=== PATIENT | female | born 1985 | race Two or more races ===

== ENCOUNTER 2024-12-19 12:24 | Emergency (ER) | payer MEDICAID, SELFPAY ==
[2024-12-19 12:25] VITALS: BMI 35.6
[2024-12-19 12:51] VITALS: BP 138/91; PULSE 83; RESP 18; TEMP 37; O2SAT 97
--- NOTE | 2024-12-19 12:57 | XR_ITS ---
Examination: Complete OB ultrasound, less than 14 weeks, transabdominal Date and time of exam: December 19, 2024 1313 hours INDICATIONS: Onset vaginal bleeding today Technique: Obstetrical ultrasound images less than 14 weeks performed via transabdominal imaging Findings: Uterus 12.1 cm gestational sac 1.2 cm corresponds to 6 weeks 0 day gestational age No pole, no cardiac activity Right ovary 3.4 cm arterial flow Left ovary 3.7 cm arterial flow IMPRESSION: Empty intrauterine gestational sac corresponding to 6 week 0 day gestational age Recommend transvaginal pelvic sonography follow-up
--- NOTE | 2024-12-19 12:59 | EDNOTE_ITS ---
<Statement entered by Summer Carlin MD - 01/02/25 06:25> As co-signing physician, I was present and available for consult prn. I concur with the plan and care as documented by the midlevel provider. ED OB Contraction Preg RMI/HPI General Chief complaint: Vaginal Bleeding Stated complaint: VAGINAL BLEEDING; PREG 7 WKS Time Seen by Provider: 12/19/24 12:45 Source: patient Arrival date/time: 12/19/24 12:24 39-year-old female with no known medical history presents to the emergency room with a chief complaint of vaginal bleeding and pelvic cramping. Patient is a G4, P3. She is currently 7 weeks . Mode of arrival: ambulatory Limitations: no limitations Related Data Home Medications ?Medication ?Instructions ?Recorded ?Confirmed metformin 500 mg tablet 500 mg PO DAILY #0 tabs 06/2001/03/19 (Glucophage) Previous Rx's ?Medication ?Instructions ?Recorded cyclobenzaprine 10 mg tablet 10 mg PO TID PRN muscle s pasm #30 01/03/19 tabs ibuprofen 800 mg tablet 800 mg PO TID PRN pain #30 t abs 01/03/19 Allergies Allergy/AdvReac Type Severity Reaction Status Date / Time No Known Allergies Allergy Verified 12/19/24 12:27 Review of Systems Review of Systems Systems Reviewed: All systems reviewed, normal except as documented Constitutional Constitutional: Reports system reviewed and no additional complaints, except as documented, Denies fatigue, Denies fever(s), Denies headache(s) and Denies weakness Eyes Eyes: Reports system reviewed and no additional complaints, except as documented, Denies blurry vision and Denies change in vision ENT Ears, Nose, Mouth, and Throat: Reports system reviewed and no additional comp laints, except as documented, Denies otalgia, Denies headache(s), Denies nasal congestion, Denies throat swelling and Denies vertigo Cardiovascular Cardiovascular: Reports system reviewed and no additional complaints, except as documented, Denies chest pain, Denies dyspnea and Denies dyspnea on exertion Respiratory Respiratory: Reports system reviewed and no additional complaints, except as documented, Denies chest congestion, Denies cough, Denies dyspnea, Denies dyspnea on exertion and Denies wheezing Gastrointestinal Gastrointestinal: Reports system reviewed and no additional complaints, except as documented, Denies abdominal pain, Denies cramping, Denies nausea and Denies vomiting Genitourinary Genitourinary: Reports system reviewed and no additional complaints, except as documented, Reports abnormal vaginal bleeding and Reports pelvic pain Musculoskeletal Musculoskeletal: Reports system reviewed and no additional complaints, except as documented and Denies back pain Integumentary/Breasts Skin/Breast: Reports system reviewed and no additional complaints, except as documented and Denies wounds Neurologic Neurologic: Reports system reviewed and no additional complaints, except as documented, Denies confusion, Denies headache(s), Denies lack of coordination, Denies vertigo and Denies weakness Psychiatric Psychiatric: Reports system reviewed and no additional complaints, except as documented, Denies anxiety, Denies confusion, Denies depression, Denies paranoia, Denies suicidal ideation and Denies tactile hallucinations Endocrine Endocrine: Reports system reviewed and no additional complaints, except as documented and Denies fatigue Hematologic/Lymphatic Hematologic/Lymphatic: Reports system reviewed and no additional complaints, except as documented and Denies lymphadenopathy Allergic/Immunologic Allergic/Immunologic: Reports system reviewed and no additional complaints, except as documented, Denies throat swelling, Denies urticaria and Denies wheezing ED Exam General Limitations: Present no limitations General appearance: Present alert and in no apparent distress Head Head exam: Present atraumatic Eye Eye exam: Present normal appearance, PERRL and EOMI ENT ENT exam: Present normal exam, normal oropharynx and mucous membranes moist Neck Neck exam: Present normal inspection, full ROM and trachea midline Chest Chest inspection: Present normal inspection and symmetric chest wall rise Respiratory Respiratory exam: Present normal lung sounds bilaterally Cardiovascular Cardiovascular exam: Present regular rate, normal rhythm and normal heart sounds Abdominal Exam Abdominal exam: Present soft and normal bowel sounds; Absent tenderness Extremities Exam Extremities exam: Present normal inspection and full ROM Back Exam Back exam: Present normal inspection and full ROM Neurological Exam Neurological exam: Present alert, oriented X3 and CN II-XII intact Psychiatric Psychiatric exam: Present normal affect and normal mood Skin Skin exam: Present warm, dry, intact and normal color Course Quality Measures none Orders Category Date Time Status US OB <= 14 weeks fetus Stat Exams 12/19/24 12:57 Completed ABO/RH Type Stat Lab 12/19/24 13:55 Completed Beta HCG,Quantitative Stat Lab 12/19/24 13:55 Completed CBC Stat Lab 12/19/24 13:55 Completed CMP [Comprehensive Metabolic Panel] Stat Lab 12/19/24 13:55 Completed UA [Urinalysis] Stat Lab 12/19/24 13:54 Completed Vital Signs Vital signs: Vital Signs Temperature 98.6 F 12/19/24 12:51 Pulse Rate 83 12/19/24 12:51 Respiratory Rate 18 12/19/24 12:51 Blood Pressure 138/91 H 12/19/24 12:51 Pulse Oximetry (%) 97 12/19/24 12:51 Oxygen Delivery Method Room Air 12/19/24 12:51 Vaginal Bleeding MDM Narrative MDM Narrative: 39-year-old female with no known medical history presents to the emergency room with a chief complaint of vaginal bleeding and pelvic cramping. Patient is a G4, P3. She is currently 7 weeks . Patient is hemodynamically stable and in no apparent distress Physical examination shows a soft nontender abdomen. Ultrasound OB was completed and shows an empty intrauterine gestational sac corresponding to 6 weeks and 0 days and gestational age. There is no pole there is no cardiac activity our radiologist recommends a transvaginal pelvic sonography follow-up. CBC CMP were within normal limits. hCG levels were at 5251. The patient was educated to return to the emergency room in 3 days for repeat blood work and ultrasound Patient was discharged and educated to follow-up with primary care provider in the next 24 to 48 hours and return to the emergency room for any evidence of worsening signs or symptoms Patient data External records reviewed:: [facility] previous records Clinical information provided by:: patient Social determinants that could affect healthcare access:: none Patient has the following chronic illnesses:: No chronic illness How is presenting disease/condition affected by chronic disease/condition?: no chronic disease Evaluation data The following diagnostics were reviewed and interpreted by me:: lab results and radiology exam(s) Lab and/or radiology exams considered but not ordered:: Labs and radiology exams considered and ordered Interpretation Summary: Ultrasound OB-Findings: Uterus 12.1 cm gestational sac 1.2 cm corresponds to 6 weeks 0 day gestational age No pole, no cardiac activity Right ovary 3.4 cm arterial flow Left ovary 3.7 cm arterial flow IMPRESSION: Empty intrauterine gestational sac corresponding to 6 week 0 day gestational age Recommend transvaginal pelvic sonography follow-up Medications / Prescriptions Medications or Prescriptions considered but not ordered:: No medication given Medication administrations:: No medication given Consultations Consultation(s) initiated? (list below): No Diagnosis Vaginal Bleeding Differential Diagnosis: threatened , dysfunctional uterine bleeding, ectopic without intrauterine and vaginal bleeding Most likely diagnosis given after review of the tests above:: Vaginal bleeding Admission Indicated Admission indicated?: not indicated Admission Request Was there a request for admission?: No Disposition Plan Disposition Plan: Discharge Discharge Attestation Discharge Attestation: The patient and all family members were given an opportunity to ask questions and understood the discharge instructions. Discharge instructions specifically effects, indications for sooner follow up or return to the emergency department, and the expected course of current diagnosis. Patient condition: Stable Discharge Plan Plan Patient Disposition: HOME (Self Care) Discharge Disposition comment: Stable Prescriptions/Referrals Prescriptions/Med Rec: No Action metformin [Glucophage] 500 MG tablet 500 mg PO DAILY Qty: 0 cyclobenzaprine 10 mg tablet 10 mg PO TID PRN (Reason: muscle spasm) Qty: 30 0RF ibuprofen 800 mg tablet 800 mg PO TID PRN (Reason: pain) Qty: 30 0RF Referrals: Noah Valerio MD [Primary Care Provider] - In 1 week Problem List Clinical Impression: Vaginal bleeding affecting early Patient/Caregiver Discharge Instructions Education Materials: Bleeding During Early Additional Instructions: Please follow-up with 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 There is no heart tones. Your hCG levels are at 5251. Our radiologist recommends short-term follow-up to get a transvaginal ultrasound as well as repeat blood work For any evidence of worsening signs or symptoms return to the emergency room immediately Print Language: Algerian Stand Alone Forms: Candace Award Info., Work/School Release, Patient Portal Info Letter MICHELLE/VERENICE Supervising Physician MICHELLE/VERENICE Supervising Physician: Dr. CARLIN
[2024-12-19 14:00] LABS: Collection Type, Urine Clean Catch
[2024-12-19 14:02] LABS: Basophils # (Auto) 0.0 Thou/mm3 (0.0-0.2); Basophils % (Auto) 0 % (0-2.5); Eosinophils # (Auto) 0.3 Thou/mm3 (0.0-0.5); Eosinophils % (Auto) 3 % (0-10); Hematocrit 37.1 % (36.0-46.0); Hemoglobin 12.2 g/dL (12.0-16.0); Immature Granulocytes Auto 0.04 Thou/mm3 (0.00-0.00); Lymphocytes # (Auto) 2.5 Thou/mm3 (1.0-4.8); Lymphocytes % (Auto) 26 % (10-50); Mean Corpuscular HGB Conc 32.9 g/dl (31.0-37.0); Mean Corpuscular Hemoglobin 30.3 pg (25.0-35.0); Mean Corpuscular Volume 92 fL (80-100); Monocytes # (Auto) 0.6 Thou/mm3 (0.0-0.8); Monocytes % (Auto) 7 % (0-12); Neutrophils # (Auto) 6.1 Thou/mm3 (1.8-7.7); Neutrophils % (Auto) 64 % (37-80); Nucleated Red Blood Cell # 0.00 Thou/mm3 (0.00-0.00); Nucleated Red Blood Cell % 0 /100 WBC (0); Platelet Count 332 Thou/mm3 (140-440); RDW Standard Deviation 62.3 fL (36.4-46.3); Red Blood Count 4.03 Miln/mm3 (4.00-5.20); White Blood Count 9.6 Thou/mm3 (3.6-11.0)
[2024-12-19 14:16] LABS: Bacteria,Urine Rare; Bilirubin,Urine Negative (Negative); Blood,Urine 3+ (Negative); Clarity,Urine Clear (Clear/Hazy); Color,Urine Colorless (Lt Yel-Yel); Glucose, Urine Negative (Negative); Ketones,Urine Negative (Negative); Leukocyte Esterase,Urine Positive (Negative); Nitrite,Urine Negative (Negative); PH,Urine 6.0 (5.0-7.0); Protein,Urine Negative (Neg - Trace); RBC,Urine 50 /hpf (0-3); Specific Gravity,Urine 1.007 (1.001-1.035); Squamous Epithelial Cell,Urine 2 /hpf (0-5); Urobilinogen,Urine Negative mg/dL (0.0-1.0); WBC,Urine 4 /hpf (0-5)
[2024-12-19 14:29] LABS: Alanine Aminotransferase 30 U/L (10-49); Albumin, Serum 4.4 gm/dL (3.5-5.0); Albumin/Globulin Ratio 1.3 (1.2-2.2); Alkaline Phosphatase 81 U/L (46-116); Anion Gap 14 (7-16); Aspartate Amino Transferase 25 U/L (0-34); BUN/Creatinine Ratio 10 Ratio (12-20); Bilirubin,Total 0.6 mg/dL (0.3-1.2); Blood Urea Nitrogen 6 mg/dL (9-23); Calcium 10.0 mg/dL (8.3-10.6); Calcium (Corrected) 10.0 mg/dL (8.5-10.1); Carbon Dioxide 19.5 mMol/L (20.0-31.0); Chloride 104 mMol/L (98-107); Creatinine (Component) 0.6 mg/dL (0.6-1.3); Estimated Creatinine Clearance 130.0 mL/min (>60); Globulin 3.3 gm/dL (2.3-3.5); Glucose 172 mg/dL (74-106); Osmolality,Calculated 275 (275-295); Potassium 4.0 mMol/L (3.4-5.1); Sodium 137 mMol/L (136-145); Total Protein 7.7 gm/dL (5.7-8.2); eGFR > 60 See Note
[2024-12-19 14:42] LABS: Beta HCG,Quantitative 5251 mIU/mL (<5.0)
== END 2024-12-19 17:22 | disposition home or self-care (01) ==
PROVIDERS: Nurse Practitioner Family; Emergency Provider Emergency Medicine; PCP Obstetrics & Gynecology
DX: O20.9 Hemorrhage in early pregnancy, unspecified (principal); Z3A.01 Less than 8 weeks gestation of pregnancy
CPT/HCPCS: 36415; 76801; 80053; 81001; 84702; 85025; 86900; 86901; 99283

== ENCOUNTER 2024-12-21 15:02 | Outpatient (AMB) | payer MEDICAID, SELFPAY ==
[2024-12-21 15:20] VITALS: BP 137/89; PULSE 84; RESP 17; TEMP 36.6; O2SAT 96; BMI 36.6
--- NOTE | 2024-12-21 15:20 | GYNCLNT_ITS ---
Vital Signs 12/21/24 15:20 Height 1.57 m Height Method Measured Weight 90.322 kg Weight Measurement Method Standing Scale BMI 36.6 BP 137/89 H Blood Pressure Source Automatic Cuff Blood Pressure Location Right Upper Arm Position Sitting Respiration 17 Pulse 84 Pulse Source Monitor Temp 97.9 F Temp Source Temporal Artery Scan Pulse Oximetry (%) 96 Oxygen Delivery Method Room Air Allergies/Home Meds Allergies & Medications Allergies No Known Allergies Allergy (Verified 12/19/24 12:27) Intake Visit Data Collection New Patient or Established: New Patient (never been to [facility]) Reason for Visit:: HOSPITAL FOLLOW UP Consent obtained for Telemed Visit: No Seen by Clinical Staff ONLY (RN/MA): No Machine Stamper Required: No Do You Feel Safe at Home: Yes Authorities Contacted: N/A PCP or OBGYN visit in last 3 months: Yes Date of Last PCP or OBGYN visit: 12/19/24 Hx Now: Yes Are you currently on any form of Control: No Last menstrual period: 10/16/24 Pain Present Currently: No Pain Scale Used: Tarango-Quintero/Numerical Pain scale:: 0 Smoking Status Smoking Status: Never smoker 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 1. Little interest or pleasure in doing things: not at all 2. Feeling down, depressed, or hopeless: not at all Total score: 0 PHQ-9 3. Trouble falling or staying asleep, or sleeping too much: Not at all 4. Feeling tired or having little energy: Not at all 5. Poor appetite or overeating: Not at all 6. Feeling bad about yourself - or that you are a failure or have let yourself or your family down: Not at all 8. Moving or speaking so slowly that other people could have noticed? - Or the opposite - being so fidgety or restless that you have been moving around a lot more than usual: not at all 9. Thoughts that you would be better off or of hurting yourself in some way: Not at all If you checked off any problems, how difficult have these problems made it for you to do your work, take care of things at home, or get along with other people?: not difficult at all Source: Developed by Drs. Mac Sabillon, Amita Mullen, Ted Gutierrez and colleagues, with an educational wyatt from [employer]. Social History Tobacco History Smoking Status: Never smoker Domestic Abuse History Do You Feel Safe at Home: Yes History of Present Illness HPI Narrative Anastacia Spencer, , presents for follow-up after an emergency room visit 2 days ago for vaginal bleeding and pelvic cramping at 7 weeks gestation by last menst rual period. The patient reports that her bleeding has improved since the ER visit. She currently notices some red blood only when wiping after urination, but it does not stain her pad or underwear. Prior to the ER visit, she had been experiencing light bleeding, particularly after bowel movements. The patient continues to have this symptom, noting that she still sees some blood when wiping after defecation. She denies any current heavy bleeding or severe pain. In the emergency room, an ultrasound revealed an empty intrauterine gestational sac corresponding to 6 weeks and 0 days gestation. The patient's serum hCG level at that time was 5250. Medical History: - Emergency room visit 2 days ago for vaginal bleeding and pelvic cramping Obstetric History: - GPAL: - Current : Gestational age 7 weeks by last menstrual period, presenting with vaginal bleeding and pelvic cramping Social History: - Patient is Chadian-speaking Review of Systems Review of Systems Systems Reviewed: All systems reviewed, normal except as documented Exam General General Appearance: alert, in no apparent distress and healthy appearing Head Head exam: atraumatic Neck Neck exam: Present normal inspection and trachea midline Chest Chest inspection: Present normal inspection and symmetric chest wall rise External exam: Present normal external exam; Absent tenderness Neuro Neurological exam: Present oriented X3 Psych Psychiatric exam: Present normal affect and normal mood Office Procedures OB Clinic LOC & Office Proc's Nursing/Assessment Patient Status: Established Patient OB Clinic Nursing Assessment: Medication Reconciliation, Update PMH in EMR and Vital Signs OB Clinic Coordination of Care: Complex Care and Chronic Disease 1-5, Consent,records obtained, informed consent, Education Simp Pt/Fam, 4+ Authorizations needed, Lab and Imaging orders and Results/Orders obtained Established Patient Charge Established Patient Point Assignment: 120 Established Patient Point Charge: EP Level 4 (120-155) Assessment & Plan Diagnosis / Problem List (1) Threatened : Status: Acute (2) Vaginal bleeding affecting early : Status: Acute Plan Possible early loss Assessment: Patient presented to the ER 2 days ago with vaginal bleeding and pelvic cramping. Ultrasound showed an empty intrauterine gestational sac terry esponding to 6 weeks 0 days, with a serum hCG of 5250. Patient reported being 7 weeks by last menstrual period. Currently, patient reports improved bleeding, with only minimal spotting noted after urination or defecation. Given the discrepancy between ultrasound findings and LMP, as well as the possibility of visualizing a sac without pole or heartbeat at 6 weeks, further evaluation is necessary before confirming diagnosis of early loss. Plan: - Obtain repeat quantitative serum hCG tomorrow (72 hours from initial test) - Schedule follow-up ultrasound tomorrow - Discuss results and diagnosis on Thursday - Patient instructed to monitor bleeding and return if symptoms worsen Additional Assessment - Serum hCG (12-19-2024): 5250 mIU/mL - Ultrasound (12-19-2024): Empty intrauterine gestational sac corresponding to 6 weeks and 0 days
== END 2024-12-21 15:39 | disposition home or self-care (01) ==
PROVIDERS: Supervising Provider Obstetrics & Gynecology; Visit Provider Obstetrics & Gynecology
DX: O20.0 Threatened abortion (principal); Z3A.01 Less than 8 weeks gestation of pregnancy
CPT/HCPCS: 99214; G0463

== ENCOUNTER 2024-12-23 09:34 | Outpatient (AMB) | payer MEDICAID, SELFPAY ==
[2024-12-23 09:46] VITALS: BP 118/80; PULSE 81; RESP 17; TEMP 36.2; O2SAT 97; BMI 36.5
--- NOTE | 2024-12-23 09:46 | GYNCLNT_ITS ---
Vital Signs 12/23/24 09:46 Height 1.57 m Height Method Measured Weight 89.981 kg Weight Measurement Method Standing Scale BMI 36.5 BP 118/80 Blood Pressure Source Automatic Cuff Blood Pressure Location Right Upper Arm Position Sitting Respiration 17 Pulse 81 Pulse Source Monitor Temp 97.1 F Temp Source Temporal Artery Scan Pulse Oximetry (%) 97 Oxygen Delivery Method Room Air Allergies/Home Meds Allergies & Medications Allergies No Known Allergies Allergy (Verified 01/03/25 08:50) Medication Reconciliation metformin 500 mg tablet (Glucophage) 500 mg PO DAILY #0 tabs 11/02/16 [History Confirmed 01/03/25] cyclobenzaprine 10 mg tablet 10 mg PO TID PRN muscle spasm #30 tabs 01/03/19 [Rx Confirmed 01/03/25] ibuprofen 800 mg tablet 800 mg PO TID PRN pain #30 tabs 01/03/19 [Rx Confirmed 01/03/25] ondansetron 4 mg disintegrating tablet 4 mg PO Q6H PRN nausea and vomiting 30 days #120 tabs 12/26/24 [Rx Confirmed 01/03/25] Intake Visit Data Collection New Patient or Established: Established Patient (seen at [facility] within 3 years) Reason for Visit:: LAB RESULTS Consent obtained for Telemed Visit: No Seen by Clinical Staff ONLY (RN/MA): No Holiday Detector Operator Required: No Do You Feel Safe at Home: Yes Authorities Contacted: N/A PCP or OBGYN visit in last 3 months: Yes Date of Last PCP or OBGYN visit: 12/21/24 Hx Now: Yes Are you currently on any form of Control: No Pain Present Currently: No Pain Scale Used: Tarango-Quintero/Numerical Pain scale:: 0 Smoking Status Smoking Status: Never smoker 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 1. Little interest or pleasure in doing things: not at all PHQ-9 8. Moving or speaking so slowly that other people could have noticed? - Or the opposite - being so fidgety or restless that you have been moving around a lot more than usual: not at all Source: Developed by Drs. Mac Sabillon, Amita Mullen, Ted Gutierrez and colleagues, with an educational wyatt from [employer]. Social History Tobacco History Smoking Status: Never smoker Domestic Abuse History Do You Feel Safe at Home: Yes History of Present Illness HPI Narrative Anastacia Spencer presents for follow-up regarding a possible complication with light spotting that has been ongoing for an unspecified duration. Yesterday, she experienced bleeding that was a little bit more than just spotting, but notes that there is currently no more increased bleeding. The patient underwent blood work yesterday morning, likely for hormone levels, but the results are not yet available. She denies any other symptoms or concerns at this time. The patient appears to be experiencing some anxiety related to her current situation, which is understandable given the uncertainty surrounding her status. She has been compliant with recommended testing, having completed the blood draw as instructed. The patient's bleeding has not been severe enough to warrant an emergency room visit, and she remains stable at this time. She is currently and experiencing light spotting, which increased sligh tly yesterday. ROS: Genitourinary: Positive for light spotting, which increased yesterday but has since decreased. Exam General General Appearance: alert, in no apparent distress and healthy appearing Head Head exam: atraumatic Neck Neck exam: Present normal inspection and trachea midline Chest Chest inspection: Present normal inspection and symmetric chest wall rise External exam: Present normal external exam; Absent tenderness Neuro Neurological exam: Present oriented X3 Psych Psychiatric exam: Present normal affect and normal mood Office Procedures OB Clinic LOC & Office Proc's Nursing/Assessment Patient Status: Established Patient OB Clinic Nursing Assessment: Medication Reconciliation, Update PMH in EMR and Vital Signs OB Clinic Coordination of Care: Complex Care and Chronic Disease 1-5, Consent,records obtained, informed consent, Education Simp Pt/Fam and Results/Orders obtained Established Patient Charge Established Patient Point Assignment: 80 Established Patient Point Charge: EP Level 3 (80-115) Assessment & Plan Diagnosis / Problem List (1) Complete : Status: Acute Plan Possible Early Complication: - Patient reports light spotting with recent episode of slightly heavier bleeding. - Unable to determine definitive diagnosis due to pending lab results. - Differential diagnoses include viable early , threatened miscarriage, or early loss. Plan: - Await results of quantitative hCG test: ? Check for results at 2 PM and 4 PM today ? If results available, call patient to discuss findings and determine next steps ? If results not available today, call patient on Thursday morning - Plan for follow-up ultrasound based on hCG results: ? Different type of ultrasound if hCG is rising ? Alternative approach if hCG is dropping - Patient education: ? Light spotting can be normal in early ? Instructions to go to ER if bleeding becomes heavy or other concerning symptoms develop - Follow-up: Clinician to call patient with results and further management plan.
== END 2024-12-23 10:39 | disposition home or self-care (01) ==
PROVIDERS: Supervising Provider Obstetrics & Gynecology; Visit Provider Obstetrics & Gynecology
DX: O03.9 Complete or unspecified spontaneous abortion without complication (principal)
CPT/HCPCS: 99213; G0463

== ENCOUNTER → 2024-12-23 | Outpatient (CLI) | payer MEDICAID, SELFPAY ==
--- NOTE | 2024-12-23 15:48 | XR_ITS ---
Examination: Complete OB ultrasound, less than 14 weeks, transabdominal Date and time of exam: December 23, 2024 1610 hours INDICATIONS: Vaginal bleeding beginning 5 days ago, pelvic sonogram December 19, 2024 M.D. intrauterine gestational sac Technique: Obstetrical ultrasound images less than 14 weeks performed via transabdominal imaging Findings: Uterus 9.3 cm, intrauterine gestational sac 1.2 cm corresponds to 6 week 0 day gestational age. No pole, no cardiac activity Ovaries obscured by bowel gas IMPRESSION: Findings suspicious for embryonic demise, suggest continued follow-up pelvic sonography
--- NOTE | 2024-12-23 16:10 | XR_ITS ---
Examination: OB Transvaginal ultrasound of the pelvis, complete Technique: Transvaginal sonographic images pelvis performed using garcia scale imaging Exam date and time: December 23, 2024 1620 hours INDICATIONS: Vaginal bleeding beginning 5 days ago, OB Y sonogram December 19, 2024 M.D. intrauterine gestational sac corresponding to 6 weeks 0 days gestational age FINDINGS: Uterus 8.6 cm Intrauterine gestational sac 1.5 cm correspondences 6 weeks 2 days gestational age No pole, no cardiac activity Right ovary 3.5 cm arterial flow. Left ovary 2.2 cm arterial flow IMPRESSION: Again noted empty intrauterine gestational sac corresponding to 6 weeks 2 days gestational age Findings are suspicious for embryonic demise, recommend continued short-term follow-up pelvic sonography.
== END | disposition home or self-care (01) ==
PROVIDERS: PCP Family Medicine; Referring Provider Obstetrics & Gynecology; Visit Provider Obstetrics & Gynecology
DX: O20.0 Threatened abortion (principal); Z3A.01 Less than 8 weeks gestation of pregnancy
CPT/HCPCS: 76801; 76817

== ENCOUNTER 2025-01-03 08:37 | Outpatient (AMB) | payer MEDICAID, SELFPAY ==
[2025-01-03 08:48] VITALS: BP 142/91; PULSE 82; RESP 16; TEMP 36.8; O2SAT 98; BMI 37.8
--- NOTE | 2025-01-03 08:48 | GYNCLNT_ITS ---
Vital Signs 01/03/25 08:48 Height 1.57 m Height Method Stated Weight 93.1 kg Weight Measurement Method Standing Scale BMI 37.8 BP 142/91 H Blood Pressure Source Automatic Cuff Blood Pressure Location Left Upper Arm Position Sitting Respiration 16 Pulse 82 Pulse Source Monitor Temp 98.2 F Temp Source Oral Pulse Oximetry (%) 98 Oxygen Delivery Method Room Air Allergies/Home Meds Allergies & Medications Allergies No Known Allergies Allergy (Verified 01/03/25 08:50) Medication Reconciliation metformin 500 mg tablet (Glucophage) 500 mg PO DAILY #0 tabs 11/02/16 [History Confirmed 01/03/25] cyclobenzaprine 10 mg tablet 10 mg PO TID PRN muscle spasm #30 tabs 01/03/19 [Rx Confirmed 01/03/25] ibuprofen 800 mg tablet 800 mg PO TID PRN pain #30 tabs 01/03/19 [Rx Confirmed 01/03/25] ibuprofen 800 mg tablet 800 mg PO Q6H PRN pain 10 days #40 tabs 12/26/24 [Rx Confirmed 01/03/25] ondansetron 4 mg disintegrating tablet 4 mg PO Q6H PRN nausea and vomiting 30 days #120 tabs 12/26/24 [Rx Confirmed 01/03/25] Intake Visit Data Collection New Patient or Established: Established Patient (seen at [facility] within 3 years) Reason for Visit:: LAB RESULTS Seen by Clinical Staff ONLY (RN/MA): No Temperature Regulator Pyrometer Required: No Do You Feel Safe at Home: Yes Authorities Contacted: N/A PCP or OBGYN visit in last 3 months: Yes Date of Last PCP or OBGYN visit: 12/23/24 Hx Now: No Are you currently on any form of Control: No Last menstrual period: 10/16/24 Pain Present Currently: No Pain Scale Used: Tarango-Quintero/Numerical Pain scale:: 0 Smoking Status Smoking Status: Never smoker Network Pricing Consultant history Network Pricing Consultant History Menstrual regularity: regular Flow: normal Monthly: Yes How many days does period last: 5 Age at menarche: 10 Menopausal: No Currently sexually active: Yes 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 1. Little interest or pleasure in doing things: not at all 2. Feeling down, depressed, or hopeless: not at all Total score: 0 PHQ-9 3. Trouble falling or staying asleep, or sleeping too much: Not at all 4. Feeling tired or having little energy: Not at all 5. Poor appetite or overeating: Not at all 6. Feeling bad about yourself - or that you are a failure or have let yourself or your family down: Not at all 7. Trouble concentrating on things, such as reading the newspaper or watching television: Not at all 8. Moving or speaking so slowly that other people could have noticed? - Or the opposite - being so fidgety or restless that you have been moving around a lot more than usual: not at all 9. Thoughts that you would be better off or of hurting yourself in some way: Not at all Total score: 0 If you checked off any problems, how difficult have these problems made it for you to do your work, take care of things at home, or get along with other people?: not difficult at all Source: Developed by Drs. Mac Sabillon, Amita Mullen, Ted Gutierrez and colleagues, with an educational wyatt from [employer]. Depression screen completed yes Social History Living Situation History Marital Status: Lives With: Family Housing: House Tobacco History Smoking Status: Never smoker Second Hand Smoke Exposure: No Alcohol History Alcohol Intake: Never Domestic Abuse History Do You Feel Safe at Home: Yes History of Present Illness HPI Narrative Anastacia Spencer, a 39-year-old woman, presents for serum HCG results. She was seen last week for a missed with a serum HCG of 4044. Since then, she experienced vaginal bleeding at home and passed products of conception. Her repeat serum HCG after that episode is now 12. She reports no ongoing vaginal bleeding at this time. She had questions regarding how long to wait before trying for her next . ROS: Negative except as noted above, limited to TRANSMISSION AND COORDINATION ENGINEER and pertinent complaints. Exam General General Appearance: alert, in no apparent distress and healthy appearing Head Head exam: atraumatic Neck Neck exam: Present normal inspection and trachea midline Chest Chest inspection: Present normal inspection and symmetric chest wall rise External exam: Present normal external exam; Absent tenderness Neuro Neurological exam: Present oriented X3 Psych Psychiatric exam: Present normal affect and normal mood Office Procedures OB Clinic LOC & Office Proc's Nursing/Assessment Patient Status: Established Patient OB Clinic Nursing Assessment: Medication Reconciliation, Update PMH in EMR and Vital Signs OB Clinic Coordination of Care: Consent,records obtained, informed consent, Education Simp Pt/Fam, Lab and Imaging orders, Results/Orders obtained and Staff clarify orders Established Patient Charge Established Patient Point Assignment: 80 Established Patient Point Charge: EP Level 3 (80-115) Assessment & Plan Diagnosis / Problem List (1) Complete : Status: Acute Plan Assessment & Plan * Completed miscarriage: Patient counseled in detail about her completed miscarriage. * Future conception: Advised there is no absolute waiting period required; she may attempt conception once her cycles return and she resumes ovulation. * Preconception counseling: Counseled on the importance of glycemic management and overall health optimization prior to conception. * Supplements: Advised to continue vitamins and initiate high-dose folic acid given advanced maternal age. * Genetic risk: Counseled regarding increased risk of trisomies.
== END 2025-01-03 08:59 | disposition home or self-care (01) ==
PROVIDERS: PCP Family Medicine; Referring Provider Family Medicine; Supervising Provider Obstetrics & Gynecology; Visit Provider Obstetrics & Gynecology
DX: O03.9 Complete or unspecified spontaneous abortion without complication (principal)
CPT/HCPCS: 99213; G0463

== ENCOUNTER 2025-02-22 08:59 | Outpatient (AMB) | payer MEDICAID, SELFPAY ==
[2025-02-22 09:08] VITALS: BP 130/84; PULSE 71; RESP 16; TEMP 36.4; O2SAT 97; BMI 37.5
--- NOTE | 2025-02-22 09:08 | AMB.GYNCLNOT ---
Vital Signs 02/22/25 09:08 Height 1.57 m Height Method Stated Weight 92.533 kg Weight Measurement Method Standing Scale BMI 37.5 BP 130/84 Blood Pressure Source Automatic Cuff Blood Pressure Location Left Upper Arm Position Sitting Respiration 16 Pulse 71 Pulse Source Monitor Temp 97.6 F Temp Source Oral Pulse Oximetry (%) 97 Oxygen Delivery Method Room Air Allergies/Home Meds Allergies & Medications Allergies No Known Allergies Allergy (Verified 03/16/25 14:09) Medication Reconciliation metformin 500 mg tablet (Glucophage) 500 mg PO DAILY #0 tabs 11/02/16 [History Confirmed 03/16/25] cyclobenzaprine 10 mg tablet 10 mg PO TID PRN muscle spasm #30 tabs 01/03/19 [Rx Confirmed 03/16/25] letrozole 2.5 mg tablet 5 mg (2 x 2.5 mg) PO QDAY 5 days #10 tabs 02/27/25 [Rx Confirmed 03/16/25] Intake Visit Data Collection New Patient or Established: Established Patient (seen at [facility] within 3 years) Reason for Visit:: ANNUAL WELLNESS Seen by Clinical Staff ONLY (RN/MA): No Irrigator Overhead Required: No Do You Feel Safe at Home: Yes Authorities Contacted: N/A PCP or OBGYN visit in last 3 months: Yes Hx Now: No Are you currently on any form of Control: No Last menstrual period: 01/21/25 Pain Present Currently: No Pain Scale Used: Tarango-Quintero/Numerical Pain scale:: 0 Smoking Status Smoking Status: Never smoker Immunizations Flu Vaccine in the Last 12 Months: No Flu Vaccine Exclusion Criteria: No Exclusion Criteria Physician Assistant history Physician Assistant History Menstrual regularity: regular Flow: normal Monthly: Yes How many days does period last: 4 Age at menarche: 10 Currently sexually active: Yes 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 1. Little interest or pleasure in doing things: not at all 2. Feeling down, depressed, or hopeless: not at all Total score: 0 PHQ-9 3. Trouble falling or staying asleep, or sleeping too much: Not at all 4. Feeling tired or having little energy: Not at all 5. Poor appetite or overeating: Not at all 6. Feeling bad about yourself - or that you are a failure or have let yourself or your family down: Not at all 7. Trouble concentrating on things, such as reading the newspaper or watching television: Not at all 8. Moving or speaking so slowly that other people could have noticed? - Or the opposite - being so fidgety or restless that you have been moving around a lot more than usual: not at all 9. Thoughts that you would be better off or of hurting yourself in some way: Not at all Total score: 0 Source: Developed by Drs. Mac Sabillon, Amita Mullen, Ted Gutierrez and colleagues, with an educational wyatt from [employer]. Depression screen completed yes Social History Living Situation History Lives With: Family Housing: House Tobacco History Smoking Status: Never smoker Second Hand Smoke Exposure: No Alcohol History Alcohol Intake: Never Domestic Abuse History Do You Feel Safe at Home: Yes History of Present Illness HPI Narrative Anastacia Spencer is a 39-year-old female presenting for an annual exam who was previously seen on 01-03 for a 1st-trimester miscarriage. She reports experiencing heart palpitations and anxiety since the miscarriage, occurring a couple of times a day both when she is busy and when she is calm. Her menstrual period returned last month, and she anticipates starting her cycle next week. She expresses desire to try to conceive again, though her is currently in [place] for his immigration process. She also reports stretch bowie that sometimes get inflamed and requests fertility and STD testing. She notes having a yeast infection-like discharge. She has an obstetric history of G1 T0 L0 with a first-trimester miscarriage on January 03, 2025. The patient is but her is currently in [place] for his immigration process. She desires to conceive again. The patient has been taking folic acid 4 mg and vitamins or women's one-a-day multivitamin. ROS: Positive for stretch bowie that sometimes get inflamed, heart palpitations, yeast infection-like discharge, and anxiety. Negative except as stated above, limited to TRAVEL PHYSICAL THERAPIST and pertinent complaints. Exam General General Appearance: alert, in no apparent distress and healthy appearing Head Head exam: atraumatic Neck Neck exam: Present normal inspection and trachea midline Chest Chest inspection: Present normal inspection and symmetric chest wall rise External exam: Present normal external exam; Absent tenderness Neuro Neurological exam: Present oriented X3 Psych Psychiatric exam: Present normal affect and normal mood Office Procedures OBC Clinic LOC & Office Proc's Nursing/Assessment Patient Status: Established Patient OB Clinic Nursing Assessment: Medication Reconciliation, Update PMH in EMR and Vital Signs OB Clinic Coordination of Care: Complex Care and Chronic Disease 1-5, Consent,records obtained, informed consent, Education Simp Pt/Fam, 1 Ins Authorization, Lab and Imaging orders, Results/Orders obtained and Staff clarify orders Miscellaneous Interventions: Pelvic/Pap Smear Set up Established Patient Charge Established Patient Point Assignment: 140 Established Patient Point Charge: EP Level 4 (120-155) In Clinic Bedside tests/procedures Pap Smear: Yes Assessment & Plan Diagnosis / Problem List (1) Female infertility, unspecified: Status: Acute (2) Acute vaginitis: Status: Acute Plan Heart Palpitations and Anxiety: - Patient reports heart palpitations and anxiety occurring couple times daily both during activity and at rest since miscarriage 2 months ago. - Hormone transitions after miscarriage can cause symptoms similar to depression which typically resolve within 2-3 months. - Given timing of 2 months post-miscarriage, if symptoms persist beyond expected timeframe, other causes need evaluation. Plan: - Check thyroid function. - Perform basic cardiac evaluation. - Coordinate with primary care physician Dwain Vogel at [facility] for additional evaluation. Desire for Conception: - Patient's menstrual cycle returned last month with anticipated next cycle next week. - Patient desires to conceive again but currently in [place] for immigration process. Plan: - Continue high-dose folic acid 4 mg. - Prenatals acceptable or women's one-a-day multivitamin. - Plan hormone evaluation when returns and actively trying to conceive. Vaginal Discharge: - Patient has yeast infection-like discharge requiring culture evaluation. Plan: - Await culture results to confirm presence of bacteria, yeast, or STDs. Stretch Bowie with Inflammation: - Patient reports stretch bowie that sometimes become inflamed. - Stretch bowie are permanent changes. Plan: - [id number] treatments such as aloe vera or evening primrose oil may provide some improvement but will not completely resolve stretch bowie. Fertility and STD Screening: - Patient requesting fertility and STD laboratory evaluation. Plan: - Obtain fertility laboratory studies. - Obtain STD screening tests.
== END 2025-02-22 10:04 | disposition home or self-care (01) ==
LOC: HODSOBC 08:59
PROVIDERS: Supervising Provider Obstetrics & Gynecology; Visit Provider Obstetrics & Gynecology
DX: N97.9 Female infertility, unspecified (principal); N76.0 Acute vaginitis; F41.9 Anxiety disorder, unspecified
CPT/HCPCS: 99214; Q0091; G0463

== ENCOUNTER → 2025-02-22 | Outpatient (CLI) | payer MEDICAID, SELFPAY ==
[2025-02-22 10:38] LABS: Misc Send Out* See Sep Rpt
[2025-02-22 11:33] LABS: Basophils # (Auto) 0.0 Thou/mm3 (0.0-0.2); Basophils % (Auto) 0 % (0-2.5); Eosinophils # (Auto) 1.0 Thou/mm3 (0.0-0.5); Eosinophils % (Auto) 11 % (0-10); Hematocrit 38.3 % (36.0-46.0); Hemoglobin 12.9 g/dL (12.0-16.0); Immature Granulocytes Auto 0.03 Thou/mm3 (0.00-0.00); Lymphocytes # (Auto) 3.0 Thou/mm3 (1.0-4.8); Lymphocytes % (Auto) 31 % (10-50); Mean Corpuscular HGB Conc 33.7 g/dl (31.0-37.0); Mean Corpuscular Hemoglobin 32.5 pg (25.0-35.0); Mean Corpuscular Volume 97 fL (80-100); Monocytes # (Auto) 0.5 Thou/mm3 (0.0-0.8); Monocytes % (Auto) 5 % (0-12); Neutrophils # (Auto) 5.0 Thou/mm3 (1.8-7.7); Neutrophils % (Auto) 53 % (37-80); Nucleated Red Blood Cell # 0.00 Thou/mm3 (0.00-0.00); Nucleated Red Blood Cell % 0 /100 WBC (0); Platelet Count 355 Thou/mm3 (140-440); RDW Standard Deviation 49.1 fL (36.4-46.3); Red Blood Count 3.97 Miln/mm3 (4.00-5.20); White Blood Count 9.5 Thou/mm3 (3.6-11.0)
[2025-02-22 11:53] LABS: Follicle Stimulating Hormone 2.67 mIU/mL (See Note)
[2025-02-22 11:54] LABS: Ferritin 41 ng/mL (7.3-270.7)
[2025-02-22 11:57] LABS: Alanine Aminotransferase 22 U/L (10-49); Albumin, Serum 4.6 gm/dL (3.5-5.0); Albumin/Globulin Ratio 1.6 (1.2-2.2); Alkaline Phosphatase 90 U/L (46-116); Anion Gap 12 (7-16); Aspartate Amino Transferase < 8 U/L (0-34); BUN/Creatinine Ratio 13 Ratio (12-20); Bilirubin,Total 1.0 mg/dL (0.3-1.2); Blood Urea Nitrogen 8 mg/dL (9-23); Calcium 9.6 mg/dL (8.3-10.6); Calcium (Corrected) 9.6 mg/dL (8.5-10.1); Carbon Dioxide 24.1 mMol/L (20.0-31.0); Chloride 101 mMol/L (98-107); Creatinine (Component) 0.6 mg/dL (0.6-1.3); Globulin 2.9 gm/dL (2.3-3.5); Glucose 224 mg/dL (74-106); Osmolality,Calculated 279 (275-295); Potassium 3.9 mMol/L (3.4-5.1); Sodium 137 mMol/L (136-145); Total Protein 7.5 gm/dL (5.7-8.2); eGFR > 60 See Note
[2025-02-22 12:11] LABS: Syphilis Nonreactive (Nonreactive)
[2025-02-25 03:03] LABS: HCV RNA, PCR <15 NOT DETECTED IU/mL; Hepatitis B Virus DNA* NOT DETECTED
[2025-02-27 06:55] LABS: HCV RNA, PCR Log IU <1.18 NOT DETECTED Log IU/mL; HIV Ag/Ab, 4th Gen NON-REACTIVE; Hepatitis B DNA PCR NOT DETECTED Log IU/mL; Luteinizing Hormone* 3.6 mIU/mL
== END | disposition home or self-care (01) ==
LOC: COPL 10:16
PROVIDERS: PCP Family Medicine; Referring Provider Obstetrics & Gynecology; Visit Provider Obstetrics & Gynecology
DX: N93.9 Abnormal uterine and vaginal bleeding, unspecified (principal)
CPT/HCPCS: 36415; 80053; 82728; 83001; 83002; 85025; 86780; 87389; 87517; 87522

== ENCOUNTER 2025-03-16 14:06 | Outpatient (AMB) | payer MEDICAID, SELFPAY ==
--- NOTE | 2025-03-16 14:08 | AMB.GYNCLNOT ---
Allergies/Home Meds Allergies & Medications Allergies No Known Allergies Allergy (Verified 03/16/25 14:09) Medication Reconciliation metformin 500 mg tablet (Glucophage) 500 mg PO DAILY #0 tabs 11/02/16 [History Confirmed 03/16/25] cyclobenzaprine 10 mg tablet 10 mg PO TID PRN muscle spasm #30 tabs 01/03/19 [Rx Confirmed 03/16/25] letrozole 2.5 mg tablet 5 mg (2 x 2.5 mg) PO QDAY 5 days #10 tabs 02/27/25 [Rx Confirmed 03/16/25] Intake Visit Data Collection New Patient or Established: Established Patient (seen at [facility] within 3 years) Reason for Visit:: DISCUSS ULTRASOUND RESULTS Consent obtained for Telemed Visit: Yes Seen by Clinical Staff ONLY (RN/MA): No Lithographic Platemaker Required: No Do You Feel Safe at Home: Yes Authorities Contacted: N/A PCP or OBGYN visit in last 3 months: Yes Hx Now: No Are you currently on any form of Control: No Last menstrual period: 03/01/25 Pain Present Currently: No Pain Scale Used: Tarango-Quintero/Numerical Pain scale:: 0 Smoking Status Smoking Status: Never smoker Immunizations Flu Vaccine in the Last 12 Months: Yes Flu Vaccine Exclusion Criteria: Already Received For Telemed visit only Telemed Video/Phone Visit: Yes Verbal consent obtained for Telemed visit?: Yes Verbal Consent witness name: HILLARY WEST Process Engineering Intern history Process Engineering Intern History Menstrual regularity: regular Flow: normal Monthly: Yes How many days does period last: 4 Age at menarche: 10 Currently sexually active: Yes INVESTIGATOR FRAUD: Past Medical History Past Medical History: Yes Hx Cardiac Disorders, Yes Hx Hypertension, No Hx Renal Disease, No Hx Diabetes Mellitus Type 1 and Yes Hx Diabetes Mellitus Type 2 Questionnaires Covid-19 Vaccine Questionnaire Has patient been vacinated for Covid-19 Have you been vacinated for Covid-19: Yes PHQ-9 PHQ-2 Over the last 2 weeks, how often have you been bothered by any of the following problems? 1. Little interest or pleasure in doing things: not at all 2. Feeling down, depressed, or hopeless: not at all Total score: 0 PHQ-9 3. Trouble falling or staying asleep, or sleeping too much: Not at all 4. Feeling tired or having little energy: Not at all 5. Poor appetite or overeating: Not at all 6. Feeling bad about yourself - or that you are a failure or have let yourself or your family down: Not at all 7. Trouble concentrating on things, such as reading the newspaper or watching television: Not at all 8. Moving or speaking so slowly that other people could have noticed? - Or the opposite - being so fidgety or restless that you have been moving around a lot more than usual: not at all 9. Thoughts that you would be better off or of hurting yourself in some way: Not at all Total score: 0 Source: Developed by Drs. Mac Sabillon, Amita Mullen, Ted Gutierrez and colleagues, with an educational wyatt from [employer] Depression screen completed yes Social History Living Situation History Lives With: Family Housing: House Tobacco History Smoking Status: Never smoker Second Hand Smoke Exposure: No Alcohol History Alcohol Intake: Never Domestic Abuse History Do You Feel Safe at Home: Yes History of Present Illness HPI Narrative Anastacia Spencer presents for follow-up of laboratory results and discussion of recent positive HPV test on Pap smear. The patient had a miscarriage in late December and is currently trying to conceive again. She reports having some skin changes described as dry skin and little bumps but denies having painful herpes-like lesions. She denies symptoms related to the HPV infection, as she was informed it typically does not cause symptoms and is only detected through Pap smear abnormalities. The patient has a history of hernia repair surgery performed several years ago and inquired about potential complications if she becomes again. She is with an obstetric history of G1 T0 L0. Her history includes a miscarriage in late December 2024. ROS: Skin: Positive for dry skin and small bumps. Negative except as stated above, limited to INVESTIGATOR FRAUD and pertinent complaints. Exam General General Appearance: alert, in no apparent distress and healthy appearing Head Head exam: atraumatic Neck Neck exam: Present normal inspection and trachea midline Chest Chest inspection: Present normal inspection and symmetric chest wall rise External exam: Present normal external exam; Absent tenderness Neuro Neurological exam: Present oriented X3 Psych Psychiatric exam: Present normal affect and normal mood Office Procedures OBC Clinic LOC & Office Proc's Nursing/Assessment Patient Status: Established Patient OB Clinic Nursing Assessment: Medication Reconciliation and Update PMH in EMR OB Clinic Coordination of Care: Complex Care and Chronic Disease 1-5, Consent,records obtained, informed consent, Education Simp Pt/Fam, Results/Orders obtained and Staff clarify orders Established Patient Charge Established Patient Point Assignment: 75 Telehealth If patient is seen using Teleconference methods, complete New/Est section, but DO NOT lesley points only lesley the correct Telemed visit type Telemed Phone/Video with patient at home & Dr,PA,MANAGER OF DISTRIBUTION: Yes Assessment & Plan Diagnosis / Problem List (1) Female infertility, unspecified: Status: Acute (2) Acute vaginitis: Status: Acute (3) Abnormal finding on Pap smear, HPV DNA positive: Status: Acute Plan HPV Positive Pap Smear: - Patient tested positive for human papillomavirus (HPV) on recent Pap smear. - HPV is acquired through sexual intercourse and can reactivate as immunity changes with age. - The virus causes abnormalities on Pap smears at a microscopic level and increases future risk for cervical changes. - HPV infection is asymptomatic and does not cause clinical symptoms. Plan: - Increase Pap smear frequency to annually instead of every three years. - Repeat Pap smear in one year. - If next two Pap smears are normal, indicates virus is not causing harm. - Patient counseled that HPV does not affect male partners or future . History of Hernia Repair: - Patient has history of hernia surgery and is concerned about recurrence during future . - Risk exists for hernia reformation during due to uterine pressure from inside. - Hernia recurrence would not affect itself but could require surgical intervention if intestinal involvement occurs. Plan: - Monitor for hernia recurrence during future . - Surgical repair would be deferred until after unless medical emergency occurs. Recent Miscarriage with Conception Attempts: - Patient experienced miscarriage in late December and is currently attempting to conceive again. - All hormonal levels are normal. - Comprehensive STD testing including syphilis, hepatitis B, hepatitis C, and HIV are negative. Plan: - Continue conception attempts as medically appropriate.
== END 2025-03-16 14:33 | disposition home or self-care (01) ==
LOC: HODSOBC 14:06
PROVIDERS: PCP Family Medicine; Referring Provider Family Medicine; Supervising Provider Obstetrics & Gynecology; Visit Provider Obstetrics & Gynecology
DX: N97.9 Female infertility, unspecified (principal); N76.0 Acute vaginitis; R87.810 Cervical high risk human papillomavirus (HPV) DNA test positive; E11.9 Type 2 diabetes mellitus without complications; Z87.59 Personal history of other complications of pregnancy, childbirth and the puerperium; Z98.890 Other specified postprocedural states; Z79.84 Long term (current) use of oral hypoglycemic drugs
CPT/HCPCS: 99212; G0463